=== PATIENT | female | born 1980 | race African-American/Black ===

== ENCOUNTER 2018-08-19 17:04 | Emergency (ER) | payer OTHER, MEDICAID ==
[~2018-08-19] VITALS: Ht 172.7 cm; Wt 123.4 kg
[2018-08-19] MEDS ORDERED: CENTRUM SILVER1 EAC4 PO (17:12)
[2018-08-19] MEDS ORDERED: BAYER CHEWABLE81 MG PO (17:13)
[2018-08-19] MEDS ORDERED: HTN MED (17:13)
[2018-08-19 17:41] LABS: ABSOLUTE EOSINOPHILS 0.1 thou/uL (0.0-0.7); ABSOLUTE LYMPHOCYTES 1.5 thou/uL (0.8-5.3); ABSOLUTE MONOCYTES 0.6 thou/uL (0.0-1.2); BASOPHILS 0.6 %; EOSINOPHILS 0.7 %; HEMATOCRIT 32.6 % (37.0-47.0); HEMOGLOBIN 10.7 gm/dL (12.0-15.0); LYMPHOCYTES 20.4 %; MCH 25.9 pg (26.0-34.0); MCHC 32.8 g/dL (28.0-37.0); MCV 78.8 fL (80.0-100.0); MONOCYTES 8.5 %; MPV 8.4 fl. (7.2-11.1); NUCLEATED RBCS 0 /100WBC; PLATELET COUNT* 226 thou/uL (150-400); POLYS 69.8 %; RBC 4.15 mil/uL (4.20-5.00); RDW-CV 14.3 % (10.5-14.5); WBC 7.1 thou/uL (4.0-11.0)
[2018-08-19 17:57] LABS: ANION GAP 10 mmol/L (7-16); BUN 5 mg/dL (7-18); CALCIUM 8.8 mg/dL (8.5-10.1); CHLORIDE 108 mmol/L (98-107); CO2 24 mmol/L (21-32); CREATININE 0.6 mg/dL (0.6-1.3); GLUCOSE 79 mg/dL (70-99); POTASSIUM 3.1 mmol/L (3.5-5.1); SODIUM 142 mmol/L (136-145); TROPONIN-I LEVEL <0.06 ng/mL (<0.06)
[2018-08-19 18:05] LABS: ALBUMIN 2.4 g/dL (3.4-5.0); ALKALINE PHOSPHATASE 184 U/L (46-116); SGOT 22 U/L (15-37); SGPT 32 U/L (30-65); TOTAL BILIRUBIN 0.7 mg/dL (<0.1-1.0); TOTAL PROTEIN 6.6 g/dL (6.4-8.2)
[2018-08-19] MEDS ORDERED: ZPAK PO (19:10)
[2018-08-19 19:18] VITALS: BP 130/67
--- NOTE | 2018-08-21 11:05 | EKG ---
[place] [address] ELECTROCARDIOGRAM REPORT Name: CHRISTY MA Room: [facility]#: [id number] Admission: 08/19/18 Attend Phys: Discharge: 08/19/18 Date of : 76 Report #: [id number] THIS REPORT FOR: //name// [facility] ED Test Date: 2018-08-19 Test Time: 17:11:49 Pat Name: CHRISTY MA Department: Room: Gender: [facility]: : 1980 Requested By: Leola Romero Order Number: [id number] MD: Arnold Kaur Measurements Intervals [place] Rate: 82 P: 68 MA: 125 QRS: 0 QRSD: 86 T: 27 QT: 371 QTc: 434 Interpretive Statements Sinus rhythm Baseline wander in lead(s) I,III,aVL,V1,V2,V4,V6 No previous ECG available for comparison Electronically Signed On 08-21-2018 11:05:25 CDT by Arnold Kaur [email or web address] <ELECTRONICALLY SIGNED> By: Arnold Kaur MD, [facility] 08/21/18 1105 D: 04/1710 10 Arnold Kaur MD, FACC /EPI
== END 2018-08-19 19:19 | disposition home or self-care (01) ==
LOC: M.ERS 17:04
PROVIDERS: Nurse Practitioner Family
DX: O99.511 Diseases of the respiratory system complicating pregnancy, first trimester (principal); J18.9 Pneumonia, unspecified organism; J45.909 Unspecified asthma, uncomplicated; I10 Essential (primary) hypertension; Z3A.00 Weeks of gestation of pregnancy not specified